=== PATIENT | male | born 1940 | race Caucasian/White ===

== ENCOUNTER 2023-07-03 12:31 | Outpatient (CLI) | payer MEDICARE, SELFPAY ==
[2023-07-03 13:19] VITALS: RESP 16
[2023-07-03 13:46] VITALS: BP 125/57; PULSE 54; RESP 16; TEMP 36.1
[2023-07-03 14:06] VITALS: BP 135/60; PULSE 48; RESP 16; TEMP 36.1; O2SAT 100
== END 2023-07-03 12:32 | disposition home or self-care (01) ==
PROVIDERS: Referring Provider Internal Medicine Hematology & Oncology; Visit Provider Internal Medicine Hematology & Oncology
DX: Z51.89 Encounter for other specified aftercare (principal); D69.6 Thrombocytopenia, unspecified
CPT/HCPCS: 36430; 86900; 86901; 86965; J7040; P9035; A4216